=== PATIENT | male | born 1945 | race African-American/Black ===

== ENCOUNTER 2018-06-16 17:35 | Inpatient (IN) ==
[2018-06-16] MEDS ORDERED: ONDANSETRON 4 MG/2 ML VIAL IV PRN (20:09)
[2018-06-16] MEDS ORDERED: GLUCAGON 1 MG VIAL IM PRN (20:09)
[2018-06-16] MEDS ORDERED: DEXTROSE 50% 25 GM/50 ML SYRINGE IV PRN (20:09)
[2018-06-16] MEDS ORDERED: ALBUTEROL 2.5 MG/3 ML NEB RESP TX PRN (20:09)
[2018-06-16 21:03] LABS: Troponin I 0.195 NG/ML (0.00-0.045)
[2018-06-16] MEDS: DOCUSATE SODIUM 100 MG CAPSULE PO SCH (21:35)
[2018-06-16] MEDS: METOPROLOL TARTRATE 50 MG TABLET PO SCH (21:35)
[2018-06-16] MEDS: GABAPENTIN 300 MG CAPSULE PO SCH (21:35)
[2018-06-16] MEDS: ATORVASTATIN 40 MG TABLET PO SCH (21:35)
[2018-06-16] MEDS ORDERED: MAGNESIUM SULF RIDER 4 GM in PREMIX 1 EACH IV PRN (22:02)
[2018-06-16] MEDS ORDERED: MAGNESIUM SULF RIDER 2 GM in PREMIX 1 EACH IV PRN (22:02)
[2018-06-16 22:06] LABS: Apearance,Urine CLEAR (Clear); Bilirubin,Urine Negative (Negative); Blood, Urine Negative (Negative); Glucose,Urine (UA) Negative (Negative); Ketones,Urine Negative (Negative); Nitrite,Urine Negative (Negative); Protein,Urine Negative; Urine Color Yellow (Yellow); Urine Specific Gravity 1.005 (1.001-1.035); WBC,Urine <1 /HPF (0-6)
[2018-06-16 22:33] LABS: Basophils % 0.7 % (0.0-0.8); Eosinophils # 0.3 10*3/uL (0.0-0.87); Eosinophils % 4.4 % (0.00-10.9); Hematocrit 33.7 VOL% (42.0-52.0); Hemoglobin 9.2 GM/DL (14.0-18.0); Immature Granulocytes % 0.2 %; Immature Granulocytes Absolute 0.01 #; Lymphocytes # 1.5 10*3/uL (1.4-4.0); Lymphocytes % 24.1 % (21.2-54.2); Mean Corpuscular HGB Conc 27.3 GM/DL (32-36); Mean Corpuscular Hemoglobin 19 PG (27-34); Mean Corpuscular Volume 70.9 FL (87-102); Mean Platelet Volume 9.8 FL (9.6-12.0); Monocytes # 0.8 10*3/uL (0.11-0.8); Monocytes % 12.4 % (1.7-12.7); Neutrophils # 3.5 10*3/uL (1.4-7.4); Neutrophils % 58.2 % (38.7-73.9); Platelet Count 304 T/CUMM (130-400); Red Blood Count 4.75 MC/CUMM (3.8-5.5); Red Cell Distribution Width 19.5 % (9.3-17.3); White Blood Count 6.1 T/CUMM (4-12)
[2018-06-16 22:53] LABS: Elliptocytes Few; Hypochromasia 1+; Platelet Estimate Normal; Target Cells 1+
[2018-06-16 22:54] LABS: Calcium 8.2 MG/DL (8.5-10.1); Osmolality,Calculated 273.8 MOS/KG (273-304); Potassium 3.9 MMOL/L (3.5-5.1)
[2018-06-16] MEDS: POTASSIUM CHLORIDE 20 MEQ TABLET PO PRN (23:15)
[2018-06-17 02:24] LABS: Basophils # 0.1 10*3/uL (0.0-0.2); Basophils % 0.7 % (0.0-0.8); Eosinophils # 0.3 10*3/uL (0.0-0.87); Eosinophils % 4.5 % (0.00-10.9); Hematocrit 30.6 VOL% (42.0-52.0); Hemoglobin 8.8 GM/DL (14.0-18.0); Immature Granulocytes % 0.3 %; Immature Granulocytes Absolute 0.02 #; Lymphocytes # 1.4 10*3/uL (1.4-4.0); Lymphocytes % 19.7 % (21.2-54.2); Mean Corpuscular HGB Conc 28.8 GM/DL (32-36); Mean Corpuscular Hemoglobin 20 PG (27-34); Mean Corpuscular Volume 68.3 FL (87-102); Mean Platelet Volume 10.4 FL (9.6-12.0); Monocytes # 0.8 10*3/uL (0.11-0.8); Monocytes % 11.9 % (1.7-12.7); NRBC # 0.03 10*3/uL; Neutrophils # 4.3 10*3/uL (1.4-7.4); Neutrophils % 62.9 % (38.7-73.9); Platelet Count 313 T/CUMM (130-400); Red Blood Count 4.48 MC/CUMM (3.8-5.5); Red Cell Distribution Width 18.6 % (9.3-17.3); White Blood Count 6.9 T/CUMM (4-12)
[2018-06-17 02:25] LABS: CKMB % 3.3 %; Troponin I 0.182 NG/ML (0.00-0.045)
[2018-06-17 02:31] LABS: Albumin 3.1 G/DL (3.4-5.0); Bilirubin,Total 0.7 MG/DL (0.2-1.0); Calcium 8.1 MG/DL (8.5-10.1); Osmolality,Calculated 279.8 MOS/KG (273-304); Potassium 4.2 MMOL/L (3.5-5.1); Risk Ratio 5.56; Thyroid Stimulating Hormone 3.69 uIU/ml (0.358-3.74); Total Protein 7.5 G/DL (6.4-8.3); VLDL CHOLESTEROL 14.6 MG/DL
[2018-06-17] MEDS: ENOXAPARIN 40 MG/0.4 ML SYRINGE SUBCUT SCH (08:45)
[2018-06-17] MEDS: FUROSEMIDE 40 MG/4 ML VIAL IV SCH ×2 (08:47→16:00)
[2018-06-17] MEDS: TAMSULOSIN 0.4 MG CAPSULE PO SCH (08:47)
[2018-06-17] MEDS: GABAPENTIN 300 MG CAPSULE PO SCH ×2 (08:47→21:11)
[2018-06-17] MEDS: PANTOPRAZOLE 40 MG TABLET PO SCH (08:47)
[2018-06-17] MEDS: amLODIPine 5 MG TABLET PO SCH (08:48)
[2018-06-17] MEDS: LOSARTAN 50 MG TABLET PO SCH (08:48)
[2018-06-17] MEDS: ASPIRIN EC 81 MG TABLET PO SCH (08:48)
[2018-06-17] MEDS: METOPROLOL TARTRATE 50 MG TABLET PO SCH ×2 (08:48→21:11)
[2018-06-17] MEDS: DOCUSATE SODIUM 100 MG CAPSULE PO SCH ×2 (08:48→21:10)
[2018-06-17 09:26] LABS: CKMB % 3.1 %; Troponin I 0.175 NG/ML (0.00-0.045)
[2018-06-17] MEDS: metOLazone 5 MG TABLET PO SCH (09:33)
[2018-06-17] MEDS ORDERED: NON-FORMULARY MEDICATION (Lovastatin [Lovastatin] 40 MG) PO SCH (16:30)
[2018-06-17] MEDS: metFORMIN 500 MG TABLET PO SCH (17:10)
[2018-06-17] MEDS ORDERED: AMITRIPTYLINE 25 MG TABLET PO SCH (21:00)
[2018-06-17] MEDS: ATORVASTATIN 40 MG TABLET PO SCH (21:11)
[2018-06-17] MEDS: DORZOLAMIDE/TIMOLOL OPH SOLN 10 ML BOTTLE BOTH EYES SCH (21:11)
[2018-06-17] MEDS: AMITRIPTYLINE 25 MG TABLET PO SCH (21:11)
[2018-06-18 04:41] LABS: Calcium 8.6 MG/DL (8.5-10.1); Osmolality,Calculated 275.2 MOS/KG (273-304); Potassium 3.4 MMOL/L (3.5-5.1)
[2018-06-18] MEDS: POTASSIUM CHLORIDE 20 MEQ TABLET PO PRN ×2 (06:43→11:35)
[2018-06-18] MEDS: GABAPENTIN 300 MG CAPSULE PO SCH ×2 (09:30→21:17)
[2018-06-18] MEDS: POTASSIUM CHLORIDE 20 MEQ TABLET PO SCH ×2 (09:30→21:18)
[2018-06-18] MEDS: DOCUSATE SODIUM 100 MG CAPSULE PO SCH ×2 (09:30→21:18)
[2018-06-18] MEDS: metFORMIN 500 MG TABLET PO SCH (09:30)
[2018-06-18] MEDS: metOLazone 5 MG TABLET PO SCH (09:30)
[2018-06-18] MEDS: METOPROLOL TARTRATE 50 MG TABLET PO SCH ×2 (09:30→21:18)
[2018-06-18] MEDS: ASPIRIN EC 81 MG TABLET PO SCH (09:30)
[2018-06-18] MEDS: LOSARTAN 50 MG TABLET PO SCH (09:30)
[2018-06-18] MEDS: ENOXAPARIN 40 MG/0.4 ML SYRINGE SUBCUT SCH (09:30)
[2018-06-18] MEDS: amLODIPine 5 MG TABLET PO SCH (09:30)
[2018-06-18] MEDS: FUROSEMIDE 40 MG/4 ML VIAL IV SCH ×2 (09:30→16:43)
[2018-06-18] MEDS: TAMSULOSIN 0.4 MG CAPSULE PO SCH (09:30)
[2018-06-18] MEDS: PANTOPRAZOLE 40 MG TABLET PO SCH (09:30)
[2018-06-18] MEDS: DORZOLAMIDE/TIMOLOL OPH SOLN 10 ML BOTTLE BOTH EYES SCH ×2 (11:30→21:17)
[2018-06-18] MEDS: INSULIN LISPRO 100 UNIT/ML SUBCUT SCH ×3 (12:05→21:17)
[2018-06-18] MEDS ORDERED: INSULIN ASPART PROTAMINE/ASPART 70/30 100 UNIT/ML SUBCUT SCH (21:00)
[2018-06-18] MEDS: AMITRIPTYLINE 25 MG TABLET PO SCH (21:18)
[2018-06-18] MEDS: ATORVASTATIN 40 MG TABLET PO SCH (21:18)
[2018-06-19] MEDS ORDERED: CYCLOBENZAPRINE 10 MG TABLET PO ONE (00:20)
[2018-06-19] MEDS: POTASSIUM CHLORIDE 20 MEQ TABLET PO PRN (00:34)
[2018-06-19 07:04] LABS: Calcium 8.7 MG/DL (8.5-10.1); Osmolality,Calculated 269.5 MOS/KG (273-304); Potassium 3.9 MMOL/L (3.5-5.1)
[2018-06-19] MEDS ORDERED: INSULIN ASPART PROTAMINE/ASPART 70/30 100 UNIT/ML SUBCUT SCH (07:30)
[2018-06-19 08:20] VITALS: BP 124/74
[2018-06-19] MEDS: INSULIN LISPRO 100 UNIT/ML SUBCUT SCH ×2 (08:30→11:51)
[2018-06-19] MEDS: LOSARTAN 50 MG TABLET PO SCH (08:39)
[2018-06-19] MEDS: metOLazone 5 MG TABLET PO SCH (08:39)
[2018-06-19] MEDS: DOCUSATE SODIUM 100 MG CAPSULE PO SCH (08:39)
[2018-06-19] MEDS: ASPIRIN EC 81 MG TABLET PO SCH (08:39)
[2018-06-19] MEDS: METOPROLOL TARTRATE 50 MG TABLET PO SCH (08:39)
[2018-06-19] MEDS: PANTOPRAZOLE 40 MG TABLET PO SCH (08:39)
[2018-06-19] MEDS: ENOXAPARIN 40 MG/0.4 ML SYRINGE SUBCUT SCH (08:40)
[2018-06-19] MEDS: TAMSULOSIN 0.4 MG CAPSULE PO SCH (08:40)
[2018-06-19] MEDS: FUROSEMIDE 40 MG/4 ML VIAL IV SCH (08:40)
[2018-06-19] MEDS: GABAPENTIN 300 MG CAPSULE PO SCH (08:40)
[2018-06-19] MEDS: POTASSIUM CHLORIDE 20 MEQ TABLET PO SCH (08:40)
[2018-06-19] MEDS: amLODIPine 5 MG TABLET PO SCH (08:40)
[2018-06-19] MEDS: DORZOLAMIDE/TIMOLOL OPH SOLN 10 ML BOTTLE BOTH EYES SCH (08:43)
== END 2018-06-19 11:50 | disposition home or self-care (01) | DRG 291 ==
LOC: N.ICU 19:16 → SUATTDRO 19:16 → N.TELES 06-18 14:11
PROVIDERS: ADMIT Internal Medicine; ATTEND Internal Medicine Nephrology

== ENCOUNTER 2018-07-14 12:19 | Inpatient (IN) ==
[2018-07-14] MEDS ORDERED: MORPHINE 4 MG/1 ML VIAL IV STA (12:43)
[2018-07-14] MEDS ORDERED: ONDANSETRON 4 MG/2 ML VIAL IV STA (12:44)
[2018-07-14] MEDS ORDERED: NITROGLYCERIN 2% OINT 1 INCH/GM PACK TOP STA (12:50)
[2018-07-14] MEDS ORDERED: ONDANSETRON 4 MG/2 ML VIAL IV PRN ×2 (13:17→15:35)
[2018-07-14] MEDS ORDERED: POTASSIUM CHLORIDE 20 MEQ TABLET PO PRN (13:17)
[2018-07-14] MEDS ORDERED: MAGNESIUM SULF RIDER 2 GM in PREMIX 1 EACH IV PRN (13:17)
[2018-07-14] MEDS ORDERED: DOCUSATE SODIUM 100 MG CAPSULE PO PRN (13:17)
[2018-07-14] MEDS ORDERED: ACETAMINOPHEN 325 MG TABLET PO PRN (13:17)
[2018-07-14] MEDS ORDERED: MAGNESIUM SULF RIDER 4 GM in PREMIX 1 EACH IV PRN (13:17)
[2018-07-14] MEDS ORDERED: diphenhydrAMINE CAP 25 MG CAPSULE PO PRN (13:17)
[2018-07-14] MEDS ORDERED: FUROSEMIDE 40 MG/4 ML VIAL IV STA (13:17)
[2018-07-14] MEDS ORDERED: ZALEPLON 5 MG CAPSULE PO PRN (13:17)
[2018-07-14] MEDS ORDERED: guaiFENesin/DM ER 600-30 MG TABLET PO PRN (13:17)
[2018-07-14] MEDS ORDERED: MORPHINE 4 MG/1 ML VIAL IV PRN (13:17)
[2018-07-14] MEDS ORDERED: ENOXAPARIN 30 MG/0.3 ML SYRINGE SUBCUT SCH (13:30)
[2018-07-14] MEDS: PANTOPRAZOLE 40 MG TABLET PO SCH (14:01)
[2018-07-14] MEDS ORDERED: DEXTROSE 50% 25 GM/50 ML VIAL IV ONE (14:40)
[2018-07-14] MEDS ORDERED: DEXTROSE 50% 25 GM/50 ML SYRINGE IV ONE (14:40)
[2018-07-14] MEDS ORDERED: GLUCAGON 1 MG VIAL IM PRN (14:57)
[2018-07-14] MEDS ORDERED: DEXTROSE 50% 25 GM/50 ML SYRINGE IV PRN (14:57)
[2018-07-14] MEDS: INSULIN LISPRO 100 UNIT/ML SUBCUT SCH ×2 (15:39→21:26)
[2018-07-14] MEDS: FUROSEMIDE 40 MG/4 ML VIAL IV SCH (15:56)
[2018-07-14] MEDS: GABAPENTIN 300 MG CAPSULE PO SCH ×2 (15:57→22:53)
[2018-07-14] MEDS ORDERED: FUROSEMIDE 40 MG TABLET PO SCH (16:00)
[2018-07-14] MEDS: metFORMIN 500 MG TABLET PO SCH (17:10)
[2018-07-14] MEDS: SIMVASTATIN 20 MG TABLET PO SCH (17:10)
[2018-07-14 17:49] LABS: CKMB % 2.3 %
[2018-07-14 17:52] LABS: Troponin I 0.177 NG/ML (0.00-0.045)
[2018-07-14] MEDS ORDERED: NALOXONE 0.4 MG/ML VIAL IV ONE (19:25)
[2018-07-14] MEDS ORDERED: NALOXONE 0.4 MG/ML VIAL ONE (19:26)
[2018-07-14 19:49] LABS: ABG Base Excess 4.4 MMOL/L (-2.5-2.5); ABG Oxygen Saturation 93.5 % (95-100); ABG PCO2 56.8 MM HG (35-48); ABG PH 7.355 (7.35-7.45); ABG PO2 73.2 MM HG (80-95); ABG TCO2 32.8 MMOL/L (23-27); Allen Test Positive; Pt O2 Delivery Device BIPAP
[2018-07-14] MEDS: ALBUTEROL/IPRATROPIUM 3 ML NEB RESP TX SCH (20:08)
[2018-07-14] MEDS ORDERED: DORZOLAMIDE/TIMOLOL OPH SOLN 10 ML BOTTLE BOTH EYES SCH (21:00)
[2018-07-14] MEDS ORDERED: SOTALOL 80 MG TABLET PO SCH (21:00)
[2018-07-14 21:08] LABS: Troponin I 0.187 NG/ML (0.00-0.045)
[2018-07-14] MEDS: AMITRIPTYLINE 25 MG TABLET PO SCH (22:53)
[2018-07-14] MEDS: INSULIN NPH/REGULAR 70/30 100 UNIT/ML SUBCUT SCH (22:54)
[2018-07-14] MEDS: APIXABAN 2.5 MG TABLET PO SCH (22:54)
[2018-07-15] MEDS: ALBUTEROL/IPRATROPIUM 3 ML NEB RESP TX SCH ×7 (00:45→23:40)
[2018-07-15 05:36] LABS: Calcium 8.3 MG/DL (8.5-10.1); Osmolality,Calculated 276.8 MOS/KG (273-304); Potassium 3.5 MMOL/L (3.5-5.1)
[2018-07-15 06:18] LABS: Basophils # 0.1 10*3/uL (0.0-0.2); Eosinophils # 0.5 10*3/uL (0.0-0.87); Eosinophils % 6.5 % (0.00-10.9); Hematocrit 32.1 VOL% (42.0-52.0); Immature Granulocytes % 0.4 %; Immature Granulocytes Absolute 0.03 #; Lymphocytes # 1.3 10*3/uL (1.4-4.0); Lymphocytes % 19.2 % (21.2-54.2); Mean Corpuscular HGB Conc 28.7 GM/DL (32-36); Mean Corpuscular Hemoglobin 19 PG (27-34); Mean Corpuscular Volume 66.3 FL (87-102); Mean Platelet Volume 10.4 FL (9.6-12.0); Monocytes # 0.9 10*3/uL (0.11-0.8); Monocytes % 12.5 % (1.7-12.7); Neutrophils # 4.2 10*3/uL (1.4-7.4); Neutrophils % 60.4 % (38.7-73.9); Platelet Count 285 T/CUMM (130-400); Red Blood Count 4.84 MC/CUMM (3.8-5.5); Red Cell Distribution Width 18.6 % (9.3-17.3); White Blood Count 6.9 T/CUMM (4-12)
[2018-07-15 06:22] LABS: Hemoglobin 9.2 GM/DL (14.0-18.0)
[2018-07-15 06:27] LABS: Platelet Estimate Normal
[2018-07-15 06:28] LABS: Polychromasia Few
[2018-07-15] MEDS: INSULIN LISPRO 100 UNIT/ML SUBCUT SCH ×4 (08:29→21:27)
[2018-07-15] MEDS: GABAPENTIN 300 MG CAPSULE PO SCH ×3 (09:56→21:26)
[2018-07-15] MEDS: POTASSIUM CHLORIDE 20 MEQ TABLET PO SCH (09:56)
[2018-07-15] MEDS: LOSARTAN 50 MG TABLET PO SCH (09:56)
[2018-07-15] MEDS: APIXABAN 2.5 MG TABLET PO SCH ×2 (09:56→21:26)
[2018-07-15] MEDS: amLODIPine 2.5 MG TABLET PO SCH (09:57)
[2018-07-15] MEDS: metOLazone 2.5 MG TABLET PO SCH (09:57)
[2018-07-15] MEDS: INSULIN NPH/REGULAR 70/30 100 UNIT/ML SUBCUT SCH ×2 (09:57→21:27)
[2018-07-15] MEDS: ASPIRIN EC 81 MG TABLET PO SCH (09:57)
[2018-07-15] MEDS: PANTOPRAZOLE 40 MG TABLET PO SCH (09:57)
[2018-07-15] MEDS: SOTALOL 80 MG TABLET PO SCH ×2 (09:57→21:26)
[2018-07-15] MEDS: metFORMIN 500 MG TABLET PO SCH ×2 (09:57→16:54)
[2018-07-15] MEDS: FUROSEMIDE 40 MG/4 ML VIAL IV SCH ×2 (09:58→16:53)
[2018-07-15 10:28] LABS: % Iron Saturation 6.5 % (18-50); Ferritin 51.2 ng/ml (26-388)
[2018-07-15] MEDS ORDERED: POLYETHYLENE GLYCOL POWDER 17 GM PACK PO PRN (10:47)
[2018-07-15] MEDS: FERROUS SULFATE 325 MG TABLET PO SCH ×2 (14:14→21:26)
[2018-07-15] MEDS: BISACODYL 5 MG TABLET PO PRN (14:15)
[2018-07-15] MEDS: SIMVASTATIN 20 MG TABLET PO SCH (16:54)
[2018-07-15] MEDS: AMITRIPTYLINE 25 MG TABLET PO SCH (21:26)
[2018-07-16] MEDS: ALBUTEROL/IPRATROPIUM 3 ML NEB RESP TX SCH ×6 (03:59→19:18)
[2018-07-16 05:27] LABS: Calcium 8.4 MG/DL (8.5-10.1); Osmolality,Calculated 275.4 MOS/KG (273-304)
[2018-07-16 05:44] LABS: Basophils % 0.5 % (0.0-0.8); Eosinophils # 0.5 10*3/uL (0.0-0.87); Eosinophils % 6.9 % (0.00-10.9); Hematocrit 32.1 VOL% (42.0-52.0); Hemoglobin 9.2 GM/DL (14.0-18.0); Immature Granulocytes % 0.5 %; Immature Granulocytes Absolute 0.04 #; Lymphocytes # 1.5 10*3/uL (1.4-4.0); Mean Corpuscular HGB Conc 28.7 GM/DL (32-36); Mean Corpuscular Hemoglobin 19 PG (27-34); Mean Corpuscular Volume 66.3 FL (87-102); Mean Platelet Volume 9.8 FL (9.6-12.0); Monocytes # 0.8 10*3/uL (0.11-0.8); Monocytes % 10.4 % (1.7-12.7); NRBC # 0.03 10*3/uL; Neutrophils # 4.6 10*3/uL (1.4-7.4); Neutrophils % 61.7 % (38.7-73.9); Platelet Count 374 T/CUMM (130-400); Red Blood Count 4.84 MC/CUMM (3.8-5.5); White Blood Count 7.4 T/CUMM (4-12)
[2018-07-16 05:51] LABS: Hypochromasia 1+; Microcytosis 1+; Ovalocytes Slight; Target Cells Few; Tear Drop Cells Slight
[2018-07-16 05:52] LABS: Polychromasia Slight
[2018-07-16] MEDS: FERROUS SULFATE 325 MG TABLET PO SCH ×3 (09:22→21:32)
[2018-07-16] MEDS: metOLazone 2.5 MG TABLET PO SCH (09:22)
[2018-07-16] MEDS: INSULIN LISPRO 100 UNIT/ML SUBCUT SCH ×4 (09:22→21:00)
[2018-07-16] MEDS: PANTOPRAZOLE 40 MG TABLET PO SCH (09:22)
[2018-07-16] MEDS: metFORMIN 500 MG TABLET PO SCH ×2 (09:22→17:23)
[2018-07-16] MEDS: SOTALOL 80 MG TABLET PO SCH ×2 (09:23→21:32)
[2018-07-16] MEDS: DOCUSATE SODIUM 100 MG CAPSULE PO SCH (09:23)
[2018-07-16] MEDS: LOSARTAN 50 MG TABLET PO SCH (09:23)
[2018-07-16] MEDS: GABAPENTIN 300 MG CAPSULE PO SCH ×3 (09:23→21:32)
[2018-07-16] MEDS: APIXABAN 2.5 MG TABLET PO SCH ×2 (09:23→21:32)
[2018-07-16] MEDS: amLODIPine 2.5 MG TABLET PO SCH (09:23)
[2018-07-16] MEDS: ASPIRIN EC 81 MG TABLET PO SCH (09:23)
[2018-07-16] MEDS: INSULIN NPH/REGULAR 70/30 100 UNIT/ML SUBCUT SCH ×2 (09:24→21:00)
[2018-07-16] MEDS: POTASSIUM CHLORIDE 20 MEQ TABLET PO SCH (09:28)
[2018-07-16] MEDS: FUROSEMIDE 40 MG/4 ML VIAL IV SCH (10:05)
[2018-07-16] MEDS: BISACODYL 5 MG TABLET PO PRN (15:30)
[2018-07-16] MEDS: SIMVASTATIN 20 MG TABLET PO SCH (15:30)
[2018-07-16] MEDS: guaiFENesin/DM ER 600-30 MG TABLET PO SCH ×2 (15:33→21:32)
[2018-07-16] MEDS ORDERED: FUROSEMIDE 40 MG TABLET PO SCH (16:00)
[2018-07-16] MEDS: FUROSEMIDE 40 MG TABLET PO SCH (17:23)
[2018-07-16] MEDS: AMITRIPTYLINE 25 MG TABLET PO SCH (21:32)
[2018-07-17] MEDS: ALBUTEROL/IPRATROPIUM 3 ML NEB RESP TX SCH ×4 (03:40→14:50)
[2018-07-17 05:43] LABS: Calcium 8.5 MG/DL (8.5-10.1); Osmolality,Calculated 273.2 MOS/KG (273-304); Potassium 3.7 MMOL/L (3.5-5.1)
[2018-07-17 06:03] LABS: Basophils % 0.5 % (0.0-0.8); Eosinophils # 0.7 10*3/uL (0.0-0.87); Eosinophils % 9.5 % (0.00-10.9); Hematocrit 31.7 VOL% (42.0-52.0); Immature Granulocytes % 0.4 %; Immature Granulocytes Absolute 0.03 #; Lymphocytes # 1.5 10*3/uL (1.4-4.0); Lymphocytes % 19.9 % (21.2-54.2); Mean Corpuscular Hemoglobin 19 PG (27-34); Mean Corpuscular Volume 66.6 FL (87-102); Mean Platelet Volume 9.7 FL (9.6-12.0); Monocytes # 0.7 10*3/uL (0.11-0.8); Monocytes % 9.3 % (1.7-12.7); Neutrophils # 4.5 10*3/uL (1.4-7.4); Neutrophils % 60.4 % (38.7-73.9); Platelet Count 342 T/CUMM (130-400); Red Blood Count 4.76 MC/CUMM (3.8-5.5); Red Cell Distribution Width 19.5 % (9.3-17.3); White Blood Count 7.5 T/CUMM (4-12)
[2018-07-17 06:05] LABS: Hemoglobin 9.2 GM/DL (14.0-18.0)
[2018-07-17] MEDS ORDERED: LOSARTAN 50 MG TABLET PO SCH (09:00)
[2018-07-17] MEDS: INSULIN LISPRO 100 UNIT/ML SUBCUT SCH ×2 (09:10→12:45)
[2018-07-17] MEDS: INSULIN NPH/REGULAR 70/30 100 UNIT/ML SUBCUT SCH (09:12)
[2018-07-17] MEDS: DOCUSATE SODIUM 100 MG CAPSULE PO SCH (09:26)
[2018-07-17] MEDS: metFORMIN 500 MG TABLET PO SCH (09:26)
[2018-07-17] MEDS: PANTOPRAZOLE 40 MG TABLET PO SCH (09:27)
[2018-07-17] MEDS: FUROSEMIDE 40 MG TABLET PO SCH (09:27)
[2018-07-17] MEDS: POTASSIUM CHLORIDE 20 MEQ TABLET PO SCH (09:27)
[2018-07-17] MEDS: metOLazone 2.5 MG TABLET PO SCH (09:27)
[2018-07-17] MEDS: FERROUS SULFATE 325 MG TABLET PO SCH ×2 (09:28→16:13)
[2018-07-17] MEDS: APIXABAN 2.5 MG TABLET PO SCH (09:28)
[2018-07-17] MEDS: ASPIRIN EC 81 MG TABLET PO SCH (09:28)
[2018-07-17] MEDS: SOTALOL 80 MG TABLET PO SCH (09:30)
[2018-07-17] MEDS: amLODIPine 2.5 MG TABLET PO SCH (09:30)
[2018-07-17] MEDS: guaiFENesin/DM ER 600-30 MG TABLET PO SCH (09:31)
[2018-07-17] MEDS: GABAPENTIN 300 MG CAPSULE PO SCH (09:37)
[2018-07-17] MEDS: BISACODYL 5 MG TABLET PO PRN (10:47)
[2018-07-17 12:01] VITALS: BP 127/65
[2018-07-17] MEDS ORDERED: GABAPENTIN 300 MG CAPSULE PO SCH (21:00)
== END 2018-07-17 15:50 | disposition home health service (06) | DRG 291 ==
LOC: EDUNIT# → EDBD → N.ED 12:19 → N.EDINP 12:19 → N.TELEN 14:39
PROVIDERS: ADMIT Internal Medicine Cardiovascular Disease; ATTEND Internal Medicine Cardiovascular Disease